=== PATIENT | female | born 1985 | race American Indian/Alaskan Native ===

== ENCOUNTER 2017-10-17 08:46 | Emergency (ER) | payer MEDICAID ==
[2017-10-17] MEDS ORDERED: PERCOCET 5/325 PO ONE (10:15)
--- NOTE | 2017-10-17 10:18 | Emergency Department Report ---
HPI - General Chief Complaint: Extremity Injury, Upper Time Seen by Provider: 10/17/17 09:59 - HPI HPI: 32-year-old AA and presents to the emergency department with complaint towards the right wrist after she fell with an outstretched hand yesterday when she tripped over a cup/mug. She denies hitting her head or any loss of consciousness. She is right-hand dominant. She did not take anything for her symptoms prior to presentation. She denies any lacerations, pain towards the elbow, numbness or paresthesias. She denies any other past medical history. ED Past Medical Hx - Past Medical History Previous Medical History?: No - Surgical History Past Surgical History?: Yes Additional Surgical History: x 1 - Social History Smoking Status: Current Every Day Smoker Substance Use Type: None - Medications Home Medications: Home Medications Medication Instructions Recorded Confirmed Last Taken Type oxyCODONE /ACETAMINOPHEN [Percocet 1 tab PO Q6HR PRN #12 tablet 10/17/17 Unknown Rx 5/325] ED Review of Systems ROS: Stated complaint: ARM PAIN FROM FALLING Other details as noted in HPI Comment: All other systems reviewed and negative Constitutional: denies: chills, fever Eyes: denies: eye pain, eye discharge, vision change ENT: denies: ear pain, throat pain Respiratory: denies: cough, shortness of breath, wheezing Cardiovascular: denies: chest pain, palpitations Gastrointestinal: denies: abdominal pain, nausea, diarrhea Genitourinary: denies: urgency, dysuria, discharge Musculoskeletal: arthralgia. denies: back pain Skin: denies: rash, lesions Neurological: denies: headache, weakness, paresthesias Physical Exam - Physical Exam Vital Signs: Vital Signs 10/17/17 09:14 Temperature 98.6 F Pulse Rate 87 Respiratory 18 Rate Blood Pressure 133/79 O2 Sat by Pulse 99 Oximetry Physical Exam: GENERAL: The patient is well-developed well-nourished. HENT: Normocephalic. Atraumatic. Patient has moist mucous membranes. EYES: Extraocular motions are intact. NECK: Supple. Trachea is midline. CHEST/LUNGS: Clear to auscultation. There is no respiratory distress noted. HEART/CARDIOVASCULAR: Regular. There is no tachycardia. There is no murmur. ABDOMEN: There is no abdominal distention. SKIN: Skin is warm and dry. NEURO: The patient is awake, alert, and oriented. The patient is cooperative. The patient has no focal neurologic deficits. The patient has normal speech and gait. MUSCULOSKELETAL: Patient has tenderness to palpation to the distal right forearm and the right wrist with areas some generalized swelling. Decreased range of motion of the right hand and wrist secondary to pain. Radial pulse +2 over 4 to the affected right wrist. Cap refill less than 2 seconds. ED Course Vital Signs 10/17/17 09:14 Temperature 98.6 F Pulse Rate 87 Respiratory 18 Rate Blood Pressure 133/79 O2 Sat by Pulse 99 Oximetry ED Medical Decision Making - Radiology Data Radiology results: image reviewed interpreted by me: X-ray of the right wrist shows a transverse fracture of the distal right ulnar shaft with some volar displacement. - Medical Decision Making Patient presents with right wrist pain after a trip and fall. She is neurovascularly intact but was found to have a transverse right distal ulnar shaft fracture with some displacement. The ulna does appear aligned on the AP view. Since it is a isolated ulnar fracture without the radius being involved, it is much more difficult for manual reduction. Patient was placed in a long- arm ulnar gutter splint and was checked both before and after and was neurovascularly intact. She appears safe for discharge and outpatient follow- up on Thursday with the orthopedist. She was given some pain medication and instructed to keep the splint on until follow-up. She will return to ER with any worsening of her symptoms or any acute distress. There was no laceration, skin tenting. - Differential Diagnosis fracture, dislocation, contusion, sprain, strain Critical Care Time: No Critical care attestation.: If time is entered above; I have spent that time in minutes in the direct care of this critically ill patient, excluding procedure time. ED Disposition Clinical Impression: Fracture of ulnar shaft, closed Qualifiers: Encounter type: initial encounter Fracture morphology: transverse Fracture alignment: displaced Laterality: right Qualified Code(s): S52.221A - Displaced transverse fracture of shaft of right ulna, initial encounter for closed fracture Disposition: TO HOME OR SELFCARE Is pt being admited?: No Condition: Stable Instructions: Arm Fracture in Adults (ED), Wrist Fracture in Adults (ED) Additional Instructions: Please follow up with an orthopedist on Thursday. Stay in the splint until follow -up with the orthopedist. Do not get the splint wet. Return to the emergency department immediately with any worsening of the symptoms, color change of the fingers or hand, numbness, or with any acute distress. You have been prescribed a medication that is sedating and therefore should not be taken prior to driving, working, and responsible for children and in no way should be mixed with alcohol of any quantity. Prescriptions: oxyCODONE /ACETAMINOPHEN [Percocet 5/325] 1 tab PO Q6HR PRN #12 tablet PRN Reason: Pain Referrals: AYLA BOJORQUEZ MD [Staff Physician] - [facility] [Provider Group] - [facility] Time of Disposition: 11:52
--- NOTE | 2017-10-17 10:42 | XRay Report ---
FINAL REPORT EXAM: XR WRIST 2V RT HISTORY: pain/swelling after fall COMPARISON: None. TECHNIQUE: Two views of the right wrist FINDINGS: There is a transverse fracture of the distal ulnar shaft with 1 bone width volar displacement. The remainder of the bones are intact. There is soft tissue swelling IMPRESSION: Transverse fracture of the distal ulnar shaft with 1 bone width volar displacement.
[2017-10-17] MEDS ORDERED: MORPHINE IM ONE (11:10)
[2017-10-17 12:44] VITALS: BP 151/91
== END 2017-10-17 12:00 | disposition home or self-care (01) ==
LOC: ED 08:46
DX: S52.221A Displaced transverse fracture of shaft of right ulna, initial encounter for closed fracture (principal); F17.200 Nicotine dependence, unspecified, uncomplicated; W17.89XA Other fall from one level to another, initial encounter; Y93.89 Activity, other specified; Y92.89 Other specified places as the place of occurrence of the external cause; Y99.8 Other external cause status
CPT/HCPCS: 29125; 73100; 96372; 99284; J2270